=== PATIENT | male | born 1955 | race Caucasian/White ===

== ENCOUNTER 2017-03-03 11:44 | Emergency (ER) | payer OTHER ==
[2017-03-03 12:05] VITALS: BP 132/85
--- NOTE | 2017-03-03 12:39 | ERNOTE ---
Medical Problem HPI - Narrative Date of Service: 03/03/17 - General Chief Complaint: General Assessment Time Seen by Provider: 03/03/17 12:35 Source: patient - Immun/Allergies/Home Medications Allergies/Adverse Reactions: Allergies No Known Allergies Allergy (Verified 05/09/16 10:28) Home Medications: HOME MEDICATIONS Acetaminophen [Tylenol] 650 mg PO QID PRN #0 tablet 04/16/14 [Last Taken Unknown ] Fluticasone Propionate [Flonase] 1 spray NS DAILY #0 inhaler 04/16/14 [Last Taken Unknown] Warfarin Sodium [Coumadin] 7 mg PO DAILY 05/09/16 [Last Taken Unknown] Warfarin Sodium [Coumadin] 8 mg PO MOWEFR 05/09/16 [Last Taken Unknown] Amoxicillin 875 mg PO BID #20 tablet 03/03/17 [Last Taken Unknown] Aspirin 325 mg PO DAILY 03/03/17 [Last Taken Unknown] Diclofenac Sodium [Voltaren] 100 gm TP QID 03/03/17 [Last Taken Unknown] Mupirocin [Bactroban] 1 appl TP TID 03/03/17 [Last Taken Unknown] - History of Present History Narrative: STATES HE HAS HAD MULTIPLE TICKS RECENTLY PLUS HAS HAD CHILLS ACHINESS AND H.A. AND FEVER. NO MEASURED FEVER BUT WAS SWEATY THIS MORNING . HE DOES A LOT OF HUNTING AND HAS HAD TICK BITES FOR THE PAST 2 WEEKS. NO RASH. HE STATES THE TICKS WERE SMALL THE SIZE OF A PIN HEAD THAT HE IDENTIFIES A "DEER TICKS". Review of Systems - Review of Systems Constitutional: Present: See HPI, fever, chills, malaise EYE: Present: no symptoms reported ENT: Present: no symptoms reported Respiratory: Present: no symptoms reported Cardiology: Present: no symptoms reported Gastrointestinal/Abdominal: Present: no symptoms reported Genitourinary: Present: no symptoms reported Musculoskeletal: Present: muscle pain Skin: Present: See HPI. Absent: rash Neurological: Present: See HPI, headache Endocrine: Present: no symptoms reported Hematologic/Lymphatic: Present: no symptoms reported Psych: Present: no symptoms reported All Other Systems: All systems neg except as marked - Patient's Past Medical History Patient History - Medical: Anemia, Arthritis, Fibromyalgia, Headache, Migraines Patient History - Cardiac/Respiratory: Deep Vein Thrombosis, Hypertension, Pulmonary Embolism Patient History - Cancer: No Hx of Cancer Patient History - Surgical Procedures: Colonoscopy, EGD, Other Patient History - Other: None - Social History Living Situations: alone Psych History: No pertinent hx Alcohol Use: occasionally Drug Use: none Physical Exam - Physical Exam General Appearance: Present: wd/wn, alert, no apparent distress - PT IS SLENDER FIT MAN WHO APPEARS MUCH OLDER THAN STATED AGE BUT IS A & O & COOP WITH STABLE VS. NO FEVER. Eye Exam: Normal inspection: bilateral, PERRL: bilateral, EOMI: bilateral Ears, Nose, Throat: Present: normal ENT inspection Neck: Present: normal inspection Respiratory: Present: no respiratory distress, normal breath sounds, no accessory muscle use, lungs clear Cardiovascular/Chest: Present: regular rate, rhythm, no murmur, normal peripheral pulses Back Exam: Present: normal inspection, normal range of motion, no CVA tenderness , no vertebral tenderness Extremity Exam: Present: normal inspection, non-tender, normal range of motion, no edema Neurological Exam: Present: alert, oriented, normal mood/affect Skin Exam: Present: other - HE DOES HAVE 5-6 PUNCTATE BITE CHICAS OR DIFFERENT AGES TO BACKOF LEFT KNEE , IN LEFT GROIN AND AT WAIST BAND OF RIGHT ABDOMEN. I FIND NO ATTACHED TICKS AND HE HAS NOT SIGN OF LOCAL REACTION OR INFECTION OR OTHER RASH.. Absent: skin rash Lymphatic Exam: Present: no adenopathy ED Progress - Results and Orders Patient's Lab Results:: I have reviewed the patient's lab results. Results and Orders: NORMAL. LYME TITER PENDING. - Vital Signs Patient's Vital Signs:: I have reviewed the patient's vital signs. Vital Signs: Vital Signs 03/03/17 12:01 Temperature 36.7 C Pulse Rate 67 Respiratory 16 Rate Blood Pressure 132/85 O2 Sat by Pulse 100 Oximetry - Progress/Reassessment Chief Complaint: General Assessment Plan - Plan Plan: ADD: PT WANTED TO WAIT IN THE WAITING ROOM THE EXAM ROOM WAS TOO COLD BUT WHEN I WENT OUT TO TALK TO HIM BEFORE DISCHARGE HE WAS GONE. THE AMOX. WAS TRANSMITTED TO [facility] ALREADY. Departure - Departure Clinical Impression: Tick bites Qualifiers: Encounter type: initial encounter Qualified Code(s): W57.XXXA - Bitten or stung by nonvenomous insect and other nonvenomous arthropods, initial encounter Disposition: Against medical advice Condition: Good Instructions: Lyme Disease Additional Instructions: I HAVE GIVEN YOU INFORMATION FOR LYME'S DISEASE THOUGH AT THE MOMENT THERE IS NO EVIDENCE THAT YOU HAVE LYME DISEASE . THE LYME'S TEST WILL TAKE A FEW DAYS TO GET RESULTS AND YOU SHOULD MAKE AN APPOINTMENT TO FOLLOW UP WITH YOUR DOCTOR ABOUT THAT. THE REST OF YOUR LABS ARE NORMAL EXCEPT FOR THE "BLEEDING TIME" ( INR) WHICH IS 3.02 AND IN THE RANGE YOUR DR. WOULD WANT. I WILL START YOU ON AMOXICILLIN IN CASE THE TEST IS POSITIVE EARLY TREATMENT MAY PREVENT [facility] PROBLEMS THOUGH YOU MAY WELL HAVE A SIMPLE VIRUS FOR WHICH THE ANTIBIOTIC IS NO HELP , I FIND NOTHING ELSE ON YOUR EXAM OTHER THAN THE BITE CHICAS. AMOXICILLIN IS NOT LIKELY SOME OF THE OTHER ANTIBIOTICS USED FOR LYME'S TO CAUSE PROBLEM WITH THE COUMADIN , BUT ANY OF THEM CAN, SO THIS HAS TO BE WATCHED BY YOUR DOCTOR ALSO. Referrals: Matt Watts MD [Primary Care Provider] - Prescriptions: Amoxicillin 875 mg PO BID #20 tablet
--- OUTSIDE RECORDS SUMMARY | 2017-03-03 12:50 | XMS REPORT | Continuity of Care Document ---
:1955 Author Organization [facility] ([facility]) Address [address] [place] [address] Phone [phone] Care Team Providers Name Role Phone Matt Rose Primary Care Provider [phone] Source Comments This disclosure is being made pursuant to the Care Everywhere program, applicable federal and state laws, and may not contain all informaitonavailable regarding this patient.[facility] ([facility]) Active Allergies and Adverse Reactions No Known Allergies Current Medications Prescription Sig. Disp. Refills Start Date End Date Status acetaminophen 325 Take 650 mg by mouth Active mg tablet every 6 hours as needed. amitriptyline 75 mg Take 150 mg by mouth Active tablet at bedtime. aspirin 325 mg Take 1 Tab by mouth 100 Tab 1 11/29/2014 Active tablet as needed. Indications: CEREBRAL THROMBOEMBOLISM PREVENTION carBAMazepine 200 Start taking 1 tab 21 Tab 0 11/27/2014 Active mg tablet twice a day for 1 week then 1 tab at bedtime every day for 1 week then stop Indications: TRIGEMINAL NEURALGIA docusate 100 mg Take 1 Cap by mouth 2 100 Cap 1 11/27/2014 Active capsule times daily as needed. Indications: CONSTIPATION enoxaparin 80 inject 80 mg 6 Syringe 1 11/27/2014 Active mg/0.8 mL injection subcutaneously every syringe 12 hours. Stop when INR is therapeutic Indications: DEEP VEIN THROMBOSIS PREVENTION, DEEP VEIN THROMBOSIS WITH PULMONARY EMBOLISM oxyCODONE 5 mg Take 1-2 Tabs by 80 Tab 0 11/27/2014 Active immediate release mouth every 4 hours tablet as needed. Indications: PAIN sennosides 8.6 mg Take 1-2 Tabs by 100 Tab 1 11/27/2014 Active tablet mouth 2 times daily as needed. Indications: BOWEL EVACUATION warfarin 5 mg Take 1 Tab by mouth 5 100 Tab 1 11/29/2014 Active tablet times weekly. T/W/F/Sa/SuTake 5 mg by mouth 5 times weekly. T/W/F/Sa/Santillan Indications: DEEP VEIN THROMBOSIS PREVENTION, DEEP VEIN THROMBOSIS WITH PULMONARY EMBOLISM topiramate 25 mg Start taking half 11 Tab 0 11/27/2014 Active tablet tablet twice daily for 1 week, Then half tab at bedtime for 1 week then stop Indications: trigminal neuralgia warfarin 6 mg Take 1 Tab by mouth 2 100 Tab 1 11/29/2014 Active tablet times weekly. Take 6 mg by mouth 2 times weekly. / Indications: DEEP VEIN THROMBOSIS PREVENTION, DEEP VEIN THROMBOSIS WITH PULMONARY EMBOLISM Active Problems Problem Noted Date Trigeminal neuralgia 11/17/2014 Pulmonary embolism- 201311/17/2014 DVT (deep venous thrombosis)- 201211/17/2014 Recurrent VTE (venous thromboembolism) 11/17/2014 Overview: LE DVT 2012 PE 2013 while off coumadin Facial pain 09/24/2012 Neck pain 12/14/2011 Social History Tobacco Use Types Packs/Day Years Used Date Current Every Day Smoker Cigarettes 1 20 Smokeless Tobacco: Never Used Tobacco Cessation:Counseling Given: Yes Comments: Alcohol Use Drinks/Week oz/Week Comments No Last Filed Vital Signs Vital Sign Reading Time Taken Blood Pressure 148/90 01/12/2015 2:45 PM CDT Pulse 76 01/12/2015 2:45 PM CDT Temperature 36.1 C (97 F) 01/12/2015 2:45 PM CDT Respiratory Rate 19 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
[2017-03-03 12:55] LABS: Hematocrit 45.2 % (42.0-52.0); Hemoglobin 15.8 gm/dL (13.5-18.0); Mean Cell Volume 89.2 fl (78-100); Mean Corpuscular Hemoglobin 31.2 pg (27-31); Mean Platelet Volume 9.8 fl (6.0-9.5); Neutrophil # 3.5 K/mm3 (1.3-6.0); Neutrophil % 62.3 % (42-75.0); Platelet Count 232 K/mm3 (150-450); Red Blood Count 5.07 M/mm3 (4.7-6.0); Red Cell Distribution Width 13.3 % (11.5-14.0); White Blood Count 5.5 K/mm3 (4.0-10.5)
[2017-03-03 13:03] LABS: Prothrombin Time (Patient) 31.9 Seconds (9.4-11.4)
[2017-03-03 13:05] LABS: INR 3.07 INR (0.90-1.10)
[2017-03-03 13:07] LABS: ALT 23 U/L (19-67); AST 19 U/L (0-48); Albumin * 3.5 gm/dl (3.4-5.0); Alkaline Phosphatase * 108 U/L (50-170); Anion Gap 10.3 mmol/L (6.8-13.8); BUN/Creatinine Ratio 10.5 (9.0-21.6); Bilirubin, Total 0.5 mg/dL (0.0-1.1); Blood Urea Nitrogen 10 mg/dL (6-23); Ca. Corrected For Albumin 9.3 mg/dL (8.4-10.2); Calcium * 9.2 mg/dL (7.9-10.9); Carbon Dioxide 30.1 mmol/L (24-32.6); Chloride 104 mmol/L (97-106); Glucose * 91 mg/dL (70-110); Potassium 4.4 mmol/L (3.4-4.6); Sodium 140 mmol/L (132-142); Total Protein 6.9 gm/dL (6.2-8.2)
== END 2017-03-03 14:10 | disposition left against medical advice (07) ==
LOC: ER 11:44
DX: T14.8 Other injury of unspecified body region (principal); W57.XXXA Bitten or stung by nonvenomous insect and other nonvenomous arthropods, initial encounter; M19.90 Unspecified osteoarthritis, unspecified site

== ENCOUNTER 2017-08-25 09:34 | Emergency (ER) | payer OTHER ==
[2017-08-25] MEDS ORDERED: METOCLOPRAMIDE HCL 5 MG/ML VIAL IV ONE (10:23)
[2017-08-25] MEDS ORDERED: NORMAL SALINE 1,000 ML IV ONE (10:23)
--- NOTE | 2017-08-25 10:28 | ERNOTE ---
Medical Problem HPI - General Chief Complaint: Nausea/Vomiting Time Seen by Provider: 08/25/17 10:12 Source: patient Exam Limitations: no limitations - Immun/Allergies/Home Medications Immunizations: IMMUNIZATION HX Immunizations Up to Date Yes History of Influenza Vaccine No Hx Pneumococcal Vaccination No Allergies/Adverse Reactions: Allergies No Known Allergies Allergy (Verified 08/25/17 09:54) Home Medications: HOME MEDICATIONS Aspirin 325 mg PO DAILY 03/03/17 [Last Taken Unknown] Diclofenac Sodium [Voltaren] 1 appl TP QID PRN 03/03/17 [Last Taken Unknown] Acetaminophen [Tylenol] 650 mg PO Q6H PRN 08/17/17 [Last Taken Unknown] Fluticasone Propionate [Flonase] 2 spray NS DAILY 08/17/17 [Last Taken Unknown] Warfarin Sodium [Coumadin] 5 mg PO DAILY 08/17/17 [Last Taken Unknown] traMADol HCL [Ultram] 50 mg PO Q6H PRN 08/17/17 [Last Taken Unknown] - History of Present History Narrative: Patient started to have a headache last night as well as starting to vomit, no abdominal pain, no diarrhea. He has a history of migraines that used to be severe but have improved over the last few years, last migraine was six months ago but not bad enough to warrant a doctors visit. He is on coumadin for PE/DVT. About a week ago he hit his head hard, no loss of consciousness. He pain is frontal and temporal and occipital, was 9/10, getting slightly better , light but not noise sensitive Date (Duration): 08/24/17 Time (Timing): 23:00 Timing: constant Review of Systems - Review of Systems Constitutional: Present: chills. Absent: recent illness, fever EYE: Absent: eye pain, double vision ENT: Absent: nose congestion, sore throat Respiratory: Present: cough - white phlegm. Absent: shortness of breath Cardiology: Absent: chest pain Gastrointestinal/Abdominal: Present: See HPI, nausea, vomiting. Absent: diarrhea, constipation, abdominal pain Genitourinary: Present: no symptoms reported Musculoskeletal: Absent: back pain Neurological: Present: See HPI, headache. Absent: weakness, numbness - Patient's Past Medical History Patient History - Medical: Anemia, Arthritis, Fibromyalgia, Headache, Migraines Patient History - Cardiac/Respiratory: Deep Vein Thrombosis, Hypertension, Pulmonary Embolism Patient History - Cancer: No Hx of Cancer Patient History - Surgical Procedures: Colonoscopy, EGD, Other Patient History - Other: None - Social History Living Situations: alone Abuse History: No History of abuse Psych History: No pertinent hx Smoking Status: Current every day smoker Have you smoked in the past 12 months: Yes Alcohol Use: rarely Drug Use: none - Immunizations Immunizations Up to Date: Yes Hx Pneumococcal Vaccination: No History of Influenza Vaccine: No Physical Exam - Physical Exam General Appearance: Present: wd/wn, alert, no apparent distress Head Exam: Present: normal inspection, no evidence of injury Eye Exam: Normal inspection: bilateral, PERRL: bilateral, EOMI: bilateral Ears, Nose, Throat: Present: normal ENT inspection, normal pharynx Neck: Present: normal inspection, nontender, supple, full range of motion Respiratory: Present: no respiratory distress, no accessory muscle use, lungs clear, decreased breath sounds Cardiovascular/Chest: Present: regular rate, rhythm, no murmur Neurological Exam: Present: alert, oriented, normal mood/affect, no motor/ sensory deficits Skin Exam: Present: normal color, warm/dry ED Progress - Results and Orders Patient's Lab Results:: I have reviewed the patient's lab results. - Vital Signs Patient's Vital Signs:: I have reviewed the patient's vital signs. Vital Signs: Vital Signs 08/25/17 09:51 Temperature 37.0 C Pulse Rate 77 Respiratory 16 Rate Blood Pressure 142/76 O2 Sat by Pulse 96 Oximetry - CT/Ultrasound CT/Ultrasound Narrative: CT head: no acute, no bleeding - Progress/Reassessment Chief Complaint: Nausea/Vomiting Progress Note-Subjective: 08/25/17 11:16 pain better 4/10 (prior to receiving meds), no vomiting in over three hours, feels thirsty discussed test results, no sign of bleeding or fever 08/25/17 11:41 patient tolerating water Departure Clinical Impression: Headache - Departure Disposition: Home self-care Condition: Good Instructions: Migraine Headache, [id number] Additional Instructions: call your doctor for follow up Referrals: Matt Watts MD [Staff Physician] -
[2017-08-25 10:37] LABS: Hematocrit 43.4 % (42.0-52.0); Hemoglobin 15.3 gm/dL (13.5-18.0); Mean Cell Volume 91.2 fl (78-100); Mean Corpuscular Hemoglobin 32.1 pg (27-31); Mean Corpuscular Hgb Conc 35.3 g/dl (32-36); Mean Platelet Volume 9.8 fl (6.0-9.5); Neutrophil # 5.3 K/mm3 (1.3-6.0); Neutrophil % 81.5 % (42-75.0); Platelet Count 199 K/mm3 (150-450); Red Blood Count 4.76 M/mm3 (4.7-6.0); Red Cell Distribution Width 13.1 % (11.5-14.0); White Blood Count 6.5 K/mm3 (4.0-10.5)
[2017-08-25 10:45] LABS: Prothrombin Time (Patient) 29.5 Seconds (9.0-11.0)
[2017-08-25 10:46] LABS: INR 2.92 INR (0.90-1.10)
[2017-08-25 10:49] LABS: ALT 16 U/L (19-67); AST 16 U/L (0-48); Albumin * 3.7 gm/dl (3.4-5.0); Alkaline Phosphatase * 92 U/L (50-170); Anion Gap 11.5 mmol/L (6.8-13.8); BUN/Creatinine Ratio 14.8 (9.0-21.6); Bilirubin, Total 0.5 mg/dL (0.0-1.1); Blood Urea Nitrogen 13 mg/dL (6-23); Ca. Corrected For Albumin 9.3 mg/dL (8.4-10.2); Calcium * 9.4 mg/dL (7.9-10.9); Carbon Dioxide 28.8 mmol/L (24-32.6); Chloride 103 mmol/L (97-106); Glucose * 110 mg/dL (70-110); Potassium 4.3 mmol/L (3.4-4.6); Sodium 139 mmol/L (132-142); Total Protein 7.4 gm/dL (6.2-8.2)
[2017-08-25] MEDS ORDERED: METOCLOPRAMIDE HCL 5 MG/ML VIAL ONE (11:12)
[2017-08-25] MEDS ORDERED: METOCLOPRAMIDE HCL 5 MG/ML VIAL IM ONE (11:17)
[2017-08-25 12:32] VITALS: BP 135/70
== END 2017-08-25 11:45 | disposition home or self-care (01) ==
LOC: ER 09:34
DX: R51 Headache (principal); Z79.01 Long term (current) use of anticoagulants; F17.200 Nicotine dependence, unspecified, uncomplicated

== ENCOUNTER 2017-09-12 09:00 | Day surgery (SDC) | payer MEDICAID, OTHER ==
[~2017-09-12 09:00] MED LIST: RINGER'S SOLUTION,LACTATED 1,000 ML IV PRN
[2017-09-12 10:39] LABS: INR 1.2 INR (0.90-1.10)
[2017-09-12] MEDS ORDERED: LIDOCAINE HCL 50 ML VIAL IJ ONE ×2 (11:00)
[2017-09-12] MEDS ORDERED: BUPIVACAINE HCL 50 ML VIAL IJ ONE ×2 (11:00)
--- NOTE | 2017-09-12 12:00 | OR ---
Operative Report - Dictated Report Narrative: Date: 09/12/2017 Preoperative diagnosis left inguinal hernia Postoperative diagnosis: Same, direct Procedure: Left inguinal hernia repair with medium Prolene hernia system Staff surgeon: Tevin Alvarenga MD Anesthesia: Local/Jono EBL: Less than 5 mL Description: The patient placed in the supine position and the left inguinal region and genitalia were prepped and draped in sterile fashion a field block was performed with a one-to-one mixture of 1% Xylocaine plain and half percent Marcaine plain. An incision was carried out at the pubic tubercle and extended laterally for 3 fingerbreadths. Dissection was taken down through the subcutaneous tissue to the external oblique upon urosepsis. Additional anesthesia was injected into the inguinal canal. The external oblique was divided in the direction of its fibers through the external ring. The spermatic cord was isolated at the pubic tubercle with a Phuc drain. The cord was explored and no indirect component was found. The posterior inguinal canal was completely patulous. The direct hernia sac was dissected free and a generous properitoneal dissection was performed with finger dissection. A medium Prolene hernia system was chosen and the disc was deployed into the properitoneal space. The external tails were then fashioned to overlap the pubic tubercle by 2 cm and the lateral tail was keyholed to allow egress of the spermatic cord. The mesh was secured to the pubic tubercle and the shelving edge of Poupart's ligament with 3-0 Prolene sutures. The spermatic cord was returned to an anatomic position. The external plica was reconstituted with a running whipstitch of 3-0 Vicryl. The incision was closed with a subcuticular stitch of 4-0 Vicryl and sealed with Dermabond. The patient tolerated the procedure well without apparent complications and was discharged from the operating room in stable condition.
[2017-09-12] MEDS ORDERED: HYDROcodone/ACETAMINOPHEN 1 EACH TABLET PO PRN (12:08)
[2017-09-12] MEDS ORDERED: IBUPROFEN 800 MG TABLET PO SCH (13:00)
[2017-09-12 13:22] VITALS: BP 100/73
[2017-09-15] MEDS ORDERED: ceFAZolin SODIUM 1 GM VIAL IV ONE (10:50)
== END 2017-09-12 09:01 | disposition home or self-care (01) ==
LOC: AMB 09:00
PROVIDERS: ATTEND Specialist
PROC: 0YU60JZ Supplement Left Inguinal Region with Synthetic Substitute, Open Approach (ICD-10-PCS; principal; 2017-09-12 10:15)
DX: K40.90 Unilateral inguinal hernia, without obstruction or gangrene, not specified as recurrent (principal); I10 Essential (primary) hypertension; Z86.711 Personal history of pulmonary embolism; F17.200 Nicotine dependence, unspecified, uncomplicated; Z79.01 Long term (current) use of anticoagulants

== ENCOUNTER 2017-09-13 03:17 | Emergency (ER) | payer OTHER ==
[2017-09-13 04:05] LABS: Hematocrit 39.4 % (42.0-52.0); Hemoglobin 13.5 gm/dL (13.5-18.0); Mean Cell Volume 93.6 fl (78-100); Mean Corpuscular Hemoglobin 32.1 pg (27-31); Mean Corpuscular Hgb Conc 34.3 g/dl (32-36); Mean Platelet Volume 9.4 fl (6.0-9.5); Neutrophil # 4.7 K/mm3 (1.3-6.0); Neutrophil % 68.8 % (42-75.0); Platelet Count 174 K/mm3 (150-450); Red Blood Count 4.21 M/mm3 (4.7-6.0); Red Cell Distribution Width 13.2 % (11.5-14.0); White Blood Count 6.9 K/mm3 (4.0-10.5)
--- NOTE | 2017-09-13 04:06 | ERNOTE ---
Abdominal HPI - General Chief Complaint: Abdominal Pain Time Seen by Provider: 09/13/17 03:45 Source: patient Exam Limitations: no limitations - Immun/Allergies/Home Medications Immunizatons: IMMUNIZATION HX Immunizations Up to Date Yes History of Influenza Vaccine No Hx Pneumococcal Vaccination No Allergies/Adverse Reactions: Allergies No Known Allergies Allergy (Verified 09/13/17 03:41) Home Medications: HOME MEDICATIONS Acetaminophen [Tylenol] 650 mg PO Q6H PRN 08/17/17 [Last Taken Unknown] Warfarin Sodium [Coumadin] 5 mg PO DAILY 08/17/17 [Last Taken 09/07/17] Enoxaparin Sodium [Lovenox] 30 mg SC Q12H 09/12/17 [Last Taken 09/12/17] HYDROcodone/ACETAMINOPHEN [[place] 5-325] 1 - 2 tab PO Q4H PRN #60 tab 09/12/17 [ Last Taken Unknown] Ibuprofen [Motrin] 800 mg PO TID #15 tab 09/12/17 [Last Taken Unknown] - History of Present Illness Narrative: Pt had hernia surgery yesterday. Today the surgical site is swollen and very tender. Pt is on lovenox and restarting coumadin due to previous DVT/ PE. Timing: getting worse Quality: moderate, severe, fullness Activities at Onset: sleep Associated Symptoms: Present: denies symptoms Prior Treatment: Present: recently seen, treated by physician, recently hospitalized Review of Systems - Review of Systems Constitutional: Absent: recent illness EYE: Present: no symptoms reported ENT: Present: no symptoms reported Respiratory: Absent: shortness of breath Cardiology: Absent: chest pain Gastrointestinal/Abdominal: Absent: nausea, vomiting - Patient's Past Medical History Patient History - Medical: Anemia, Arthritis, Headache, Migraines Patient History - Cardiac/Respiratory: Deep Vein Thrombosis, Hypertension, Pulmonary Embolism Patient History - Cancer: No Hx of Cancer Patient History - Surgical Procedures: Colonoscopy, EGD, Other, Hernia Repair Patient History - Other: None - Family History Mother Family History - Medical: , Other Family History - Cardiac/Respiratory: Aneurysm, CVA/Stroke Family History - Cancer: No pertinent family hx Children Family History - Medical: , No pertinent hx Family History - Cardiac/Respiratory: CVA/Stroke Family History - Cancer: No pertinent family hx - Social History Living Situations: alone Abuse History: No History of abuse Psych History: No pertinent hx Smoking Status: Current every day smoker Have you smoked in the past 12 months: Yes Do you dip or chew tobacco: No Alcohol Use: none Drug Use: none - Immunizations Immunizations Up to Date: Yes Hx Pneumococcal Vaccination: No History of Influenza Vaccine: No Physical Exam - Physical Exam General Appearance: Present: wd/wn, alert, mild distress Head Exam: Present: normal inspection, no evidence of injury Neck: Present: normal inspection, nontender, supple Respiratory: Present: no respiratory distress, normal breath sounds, no accessory muscle use, lungs clear Cardiovascular/Chest: Present: regular rate, rhythm, no murmur, normal peripheral pulses Gastrointestinal/Abdominal: Present: normal bowel sounds, tenderness - LLQ where a surgical wound is intact. There is swelling and tenderness under the surgical wound, abnormal bowel sounds Back Exam: Present: normal inspection, normal range of motion Extremity Exam: Present: normal inspection, normal range of motion Neurological Exam: Present: alert, oriented Skin Exam: Present: normal color, warm/dry, other - surgical site in the left inguinal area intact without erythema or drainage. Moderately swollen and mod. tender Lymphatic Exam: Present: no adenopathy ED Progress - Results and Orders Patient's Lab Results:: I have reviewed the patient's lab results. Results and Orders: Laboratory Tests 09/13/17 03:55 WBC 6.9 Hgb 13.5 Hct 39.4 L Plt Count 174 - Vital Signs Patient's Vital Signs:: I have reviewed the patient's vital signs. Vital Signs: Vital Signs 09/13/17 03:33 Temperature 37.0 C Pulse Rate 78 Respiratory 14 Rate Blood Pressure 97/60 O2 Sat by Pulse 96 Oximetry - CT/Ultrasound CT/Ultrasound Narrative: 4cm x 4.5 cm subcutaneous hematoma within the hernia surgical site. Large renal cyst present on previous scans larger at this time. - Progress/Reassessment Chief Complaint: Abdominal Pain Progress:: Unchanged Progress Note-Subjective: 09/13/17 05:[address] Alvarenga and he feels the hematoma will reabsorb. He recommends that he hold off one more day before restarting his coumadin I discussed this with the patient and discussed keeping ahead of the pain for 24 -48 hours. He has #60 5/325 norco and 800 mg ibuprofen, enough to last until his next visit with Dr. T. Departure Clinical Impression: Hematoma following procedure - Departure Disposition: Home Follow Up Needed Condition: Good Instructions: Hematoma, [id number] Additional Instructions: Take your pain medication on a scheduled basis for the next 24 hours then as needed. Use warm packs on the area 15-20 minutes at a time. Do not get the incision wet. See Dr. Alvarenga as scheduled. Referrals: Tevin Alvarenga MD [Primary Care Provider] -
[2017-09-13] MEDS ORDERED: NALBUPHINE HCL 20 MG/ML AMPUL IM ONE (05:53)
[2017-09-13] MEDS ORDERED: KETOROLAC TROMETHAMINE 60 MG/2 ML VIAL IM ONE ×2 (05:53→06:02)
[2017-09-13] MEDS ORDERED: ONDANSETRON 4 MG TAB.RAPDIS PO ONE (05:54)
[2017-09-13] MEDS ORDERED: NALBUPHINE HCL 20 MG/ML AMPUL ONE (06:02)
[2017-09-13] MEDS ORDERED: ONDANSETRON 4 MG TAB.RAPDIS ONE (06:03)
[2017-09-13 06:08] VITALS: BP 94/61
== END 2017-09-13 06:29 | disposition home or self-care (01) ==
LOC: ER 03:17
DX: M96.841 Postprocedural hematoma of a musculoskeletal structure following other procedure (principal); Y83.8 Other surgical procedures as the cause of abnormal reaction of the patient, or of later complication, without mention of misadventure at the time of the procedure